=== PATIENT | female | born 1950 | race Caucasian/White ===

== ENCOUNTER 2016-05-21 13:58 | Emergency (ER) | payer MEDICARE, BC, OTHER ==
[~2016-05-21] VITALS: Ht 307.3 cm; Wt 91.1 kg
[~2016-05-21 13:58] MED LIST: ALPR0.25 PO; ASCO500T2 PO; ASPI81TA2 PO; CALC-316 PO; CHOL400C2 PO; CIPR250T30 PO; CLOP75TA27 PO; CRESTOR5 MG PO; DULO20CA PO; DULO30CA2 PO; ESTR42.53 VG; FISH12002 PO; LEVO112T4 PO; LEVO25TA4 PO; LOSA25TA4 PO; METF500T9 PO; METO25TA4 PO; MOME17SP NS; NITR100C63 PO; NORT25CA PO; OMEG300C PO; PANT40TA3 PO; SITA25TA PO; SOLI5TAB PO
[2016-05-21] MEDS ORDERED: ONDANSETRON PF 4 MG/2 ML VIAL. ONE (14:07)
[2016-05-21] MEDS ORDERED: IV NORMAL SALINE 1,000ML 1,000 ML IV ONE (14:30)
--- NOTE | 2016-05-21 14:38 | EKG ---
[address] [address] Test Date: 2016-05-21 Test Time: 14:33:15 Pat Name: ALICIA LEBRON Department: Room: Gender: F Tool Room Supervisor: NIYAH : 1950 Requested By: TYRON MORENO Order Number: [id number] Reading MD: Measurements Intervals [place] Rate: 63 P: 58 VT: 220 QRS: -4 QRSD: 92 T: 48 QT: 438 QTc: 452 Interpretive Statements SINUS RHYTHM PROLONGED VT INTERVAL LEFTWARD AXIS ABNORMAL ECG RI6.01 Unconfirmed report No previous ECG available for comparison
[2016-05-21] MEDS ORDERED: ONDANSETRON PF 4 MG/2 ML VIAL. IV ONE (14:45)
[2016-05-21] MEDS ORDERED: METOCLOPRAMIDE HCL 10 MG/2 ML VIAL. IV ONE (14:45)
[2016-05-21 14:46] LABS: BASO # 0.1 x10^3/uL (0.0-0.2); BASO % 1 % (0-3); EOS # 0.1 x10^3/uL (0.0-0.7); EOS % 1 % (0-3); HEMATOCRIT 41.6 % (36.0-47.0); LYMPH # 3.4 x10^3/uL (1.0-4.8); LYMPH % 22 % (24-48); MEAN CORPUSCULAR HEMOGLOBIN 29 pg (25-35); MEAN CORPUSCULAR HGB CONC 34 g/dL (31-37); MEAN CORPUSCULAR VOLUME 85 fL (79-100); MONO # 0.9 x10^3/uL (0.0-1.1); MONO % 6 % (0-9); NEUT % 71 % (31-73); PLATELET COUNT 281 x10^3/uL (140-400); RED BLOOD COUNT 4.91 x10^6/uL (3.50-5.40); RED CELL DISTRIBUTION WIDTH 13.6 % (11.5-14.5); WHITE BLOOD COUNT 15.6 x10^3/uL (4.0-11.0)
[2016-05-21 14:50] LABS: POTASSIUM ISTAT 4.1 mmol/L (3.5-5.0)
--- NOTE | 2016-05-21 15:03 | RAD ---
CT of the head without contrast, 05/21/2016: History: Fall, headache There is a moderate sized abnormal extra-axial fluid collection over the left cerebral hemisphere. It is predominantly of high density with lesser low density components. The indicates a subdural location. It measures approximately 14 mm in greatest width. There is effacement of the underlying cortical sulci and the left lateral ventricle with a moderate yjka-lx-[id number] shift of the midline structures. No intra-axial hemorrhage is seen. The bony calvarium appears intact. IMPRESSION: Moderate sized left subdural hematoma with predominantly acute components, with a moderate associated left to right shift of the midline structures. Note: The findings were called to personnel in the [facility] ER at 3:00 PM on 05/21/2016. PQRS Compliance Statement: One or more of the following individualized dose reduction techniques were utilized for this examination: 1. Automated exposure control 2. Adjustment of the mA and/or kV according to patient size 3. Use of iterative reconstruction technique
--- NOTE | 2016-05-21 15:15 | ED.ADGEN ---
Past History Past Medical History: CAD, Constipation, Diabetes, Gallstones, Kidney Stones Past Surgical History: Cholecystectomy, Lumbar Laminectomy, Other Alcohol Use: None Drug Use: None Adult General HPI HPI Patient is a 65-year-old female with a history of diabetes, hypertension, coronary artery disease status post stent 3 years ago and currently on Plavix presents complaining of sudden onset "worse headache of her life" 3 hours prior to arrival. Then, 2 hours later she began to experience uncontrolled nausea and vomiting. She has no other focal complaints. She does note that her mother had a subarachnoid hemorrhage in her 60s. Denies any trauma or recent injury. Denies any recent illness. Has had no prehospital intervention. Review of Systems Review of Systems Constitutional: Denies fever or chills [] Eyes: Denies change in visual acuity, redness, or eye pain [] HENT: Denies nasal congestion or sore throat [] Respiratory: Denies cough or shortness of breath [] Cardiovascular: No additional information not addressed in HPI [] GI: Denies abdominal pain, nausea, vomiting, bloody stools or diarrhea [] : Denies dysuria or hematuria [] Musculoskeletal: Denies back pain or joint pain [] Integument: Denies rash or skin lesions [] Neurologic: Denies headache, focal weakness or sensory changes [] Endocrine: Denies polyuria or polydipsia [] Current Medications Current Medications Current Medications Medications (Trade) Dose Ordered Sig/Juan David Start Time Stop Time Status Last Admin Dose Admin Metoclopramide HCl (Reglan) 10 mg 1X ONCE 05/21/16 14:45 05/21/16 14:46 DC 05/21/16 14:45 10 MG Ondansetron HCl (Zofran) 4 mg STK-MED ONCE 05/21/16 14:07 05/21/16 14:08 DC Ondansetron HCl 8 mg 8 mg 1X ONCE 05/21/16 14:45 05/21/16 14:46 DC 05/21/16 14:38 8 MG Sodium Chloride (Iv Sodium Chloride 0.9% 1,000ml) 1,000 ml @ 1,000 mls/hr 1X ONCE 05/21/16 14:30 05/21/16 15:29 DC 05/21/16 14:30 1,000 MLS/HR Allergies Allergies Allergies Coded Allergies Type Severity Reaction Last Updated Verified erythromycin base Allergy Intermediate 03/17/16 Yes Physical Exam Physical Exam Constitutional: Well developed, well nourished, moderate acute distress, diaphoretic, uncomfortable. [] HENT: Normocephalic, atraumatic, bilateral external ears normal, oropharynx moist, no oral exudates, nose normal. [] Eyes: PERRLA, EOMI, conjunctiva normal, no discharge. [] Neck: Normal range of motion, no tenderness, supple, no stridor. [] Cardiovascular:Heart rate regular rhythm, no murmur [] Lungs & Thorax: Bilateral breath sounds clear to auscultation [] Abdomen: Bowel sounds normal, soft, no tenderness, no masses, no pulsatile masses. [] Skin: Warm, dry, no erythema, no rash. [] Back: No tenderness, no CVA tenderness. [] Extremities: No tenderness, no cyanosis, no clubbing, ROM intact, no edema. [] Neurologic: Alert and oriented X 3, normal motor function, normal sensory function, no focal deficits noted. [] Psychologic: Affect normal, judgement normal, mood normal. [] Current Patient Data Vital Signs Vital Signs Date Time Temp Pulse Resp B/P Pulse Ox O2 Delivery O2 Flow Rate FiO2 05/21/16 14:05 97.5 15 97 Room Air Lab Results Laboratory Tests Test 05/21/16 14:16 05/21/16 14:25 05/21/16 14:28 05/21/16 14:29 Glucose (Fingerstick) 158mg/dL (70-99) H White Blood Count 15.6x10^3/uL (4.0-11.0) H Red Blood Count 4.91x10^6/uL (3.50-5.40) Hemoglobin 14.0g/dL (12.0-15.5) Hematocrit 41.6% (36.0-47.0) Mean Corpuscular Volume 85fL (79-100) Mean Corpuscular Hemoglobin 29pg (25-35) Mean Corpuscular Hemoglobin Concent 34g/dL (31-37) Red Cell Distribution Width 13.6% (11.5-14.5) Platelet Count 281x10^3/uL (140-400) Neutrophils (%) (Auto) 71% (31-73) Lymphocytes (%) (Auto) 22% (24-48) L Monocytes (%) (Auto) 6% (0-9) Eosinophils (%) (Auto) 1% (0-3) Basophils (%) (Auto) 1% (0-3) Neutrophils # (Auto) 11.0x10^3uL (1.8-7.7) H Lymphocytes # (Auto) 3.4x10^3/uL (1.0-4.8) Monocytes # (Auto) 0.9x10^3/uL (0.0-1.1) Eosinophils # (Auto) 0.1x10^3/uL (0.0-0.7) Basophils # (Auto) 0.1x10^3/uL (0.0-0.2) Segmented Neutrophils % 63% (35-66) Lymphocytes % 33% (24-48) Monocytes % 2% (0-10) Basophils % 2% (0-3) Platelet Estimate Adequate (ADEQUATE) Platelet Clumps, EDTA Present Large Platelets Occ Polychromasia Slight Ovalocytes Occ Prothrombin Time 9.9SEC (9.4-11.4) Prothrombin Time INR 1.0 (0.9-1.1) PTT 23SEC (23-33) Lactic Acid Level 2.1mmol/L (0.4-2.0) H POC Hemoglobin 15.0gm/dL POC Hematocrit 44% POC Sodium 140mmol/L (135-145) POC Potassium 4.1mmol/L (3.5-5.0) POC Chloride 99mmol/L (98-110) POC Total CO2 31mmol/L (23-32) Anion Gap 15mmol/L (6-14) H POC Blood Urea Nitrogen 14mg/dL (8-26) POC Creatinine 1.0mg/dL (0.5-1.4) Glucose Level 156mg/dL (60-99) H POC Ionized Calcium (Joe) 1.19mmol/L (1.13-1.32) POC Troponin I 0.00ng/ml (<0.08) EKG EKG EKG interpreted by me, normal sinus rhythm, 63 beats for minute, leftward axis, no ST segment elevation. [] Radiology/Procedures Radiology/Procedures CT of the head without contrast, 05/21/2016: History: Fall, headache There is a moderate sized abnormal extra-axial fluid collection over the left cerebral hemisphere. It is predominantly of high density with lesser low density components. The indicates a subdural location. It measures approximately 14 mm in greatest width. There is effacement of the underlying cortical sulci and the left lateral ventricle with a moderate rviu-kh-nokol shift of the midline structures. No intra-axial hemorrhage is seen. The bony calvarium appears intact. IMPRESSION: Moderate sized left subdural hematoma with predominantly acute components, with a moderate associated left to right shift of the midline structures. Note: The findings were called to personnel in the [facility] ER at 3:00 PM on 05/21/2016. PQRS Compliance Statement: One or more of the following individualized dose reduction techniques were utilized for this examination: 1. Automated exposure control 2. Adjustment of the mA and/or kV according to patient size 3. Use of iterative reconstruction technique[] Course & Med Decision Making Course & Med Decision Making Pertinent Labs and Imaging studies reviewed. (See chart for details) 1500 - spoke with Dayanara from neurosurgery 1515 - return call from Dayanara - transfer to [facility] for anticipatied craniotomy this afternoon. Patient and family updated. 1530 - Accepted by Dr. Hernandez [] Final Impression Final Impression Subdural Hematoma[] Problems: Dragon Disclaimer Dragon Disclaimer This electronic medical record was generated, in whole or in part, using a voice recognition dictation system. Critical Care Time Critical care time was 60 minutes exclusive of procedures. TYRON MORENO MD May 21, 2016 15:15
[2016-05-21 15:16] LABS: % BASOS 2 % (0-3); % LYMPHS 33 % (24-48); % MONOS 2 % (0-10); % SEGS 63 % (35-66)
[2016-05-21 15:19] LABS: OVALOCYTES OCC; PLATELET CLUMP PRESENT; PLT ESTIMATE ADEQUATE (ADEQUATE); POLYCHROMASIA SLIGHT
[2016-05-21 15:30] VITALS: BP 163/89
== END 2016-05-21 15:43 | disposition short-term general hospital (02) ==
LOC: ER 13:58
DX: I62.00 Nontraumatic subdural hemorrhage, unspecified (principal); E11.9 Type 2 diabetes mellitus without complications; I25.10 Atherosclerotic heart disease of native coronary artery without angina pectoris; Z87.442 Personal history of urinary calculi; Z88.1 Allergy status to other antibiotic agents
CPT/HCPCS: 36415; 70450; 80047; 82947; 83605; 84484; 85007; 85027; 85610; 85730; 93005; 96361; 96374; 96375; 99291; J2405; J2765; J7030

== ENCOUNTER → 2016-05-31 | Outpatient (CLI) | payer MEDICARE, BC, OTHER ==
[2016-05-21 15:30] VITALS: BP 163/89
--- NOTE | 2016-05-31 15:05 | RAD ---
Indication post craniotomy. Noncontrast images of the head were obtained and are compared to the most recent examination available 10 days ago. There has been interval craniotomy. Subdural fluid collection on the left persists. Most of the subdural fluid has a chronic appearance however there is a rim of increased density suggesting possible rebleeding. The subdural fluid collection measures maximally approximately 11 mm which represents no significant change compared to the previous study. The hyperdense collection, measures approximately 5 mm. There is considerable left to right shift measuring 11 mm. This represents an increase relative to the previous examination when the corresponding measurement was approximately 5. No acute parenchymal finding is seen. A preliminary report was faxed to Laurie in Dr. Mcgraw's office. IMPRESSION: Persistent left subdural fluid collection which, overall, is similar when compared to the preoperative study. There is a rim of increased density associated with the subdural fluid collection and some rebleeding into the subdural space is not excluded. There is mzrw-az-tmfyw shift, greater than on the previous exam PQRS Compliance Statement: One or more of the following individualized dose reduction techniques were utilized for this examination: 1. Automated exposure control 2. Adjustment of the mA and/or kV according to patient size 3. Use of iterative reconstruction technique
== END | disposition home or self-care (01) ==
LOC: CT 13:29
PROVIDERS: ATTEND Neurological Surgery
DX: I62.00 Nontraumatic subdural hemorrhage, unspecified (principal)
CPT/HCPCS: 70450

== ENCOUNTER → 2016-09-09 | Outpatient (CLI) | payer MEDICARE, BC, OTHER ==
[~2016-09-09] MED LIST changes: +ASPI-630 PO; -ASPI81TA2 PO; -CLOP75TA27 PO; +CLOP75TA57 PO; -DULO20CA PO; +DULO20CA50 PO; +IOHEXOL 240 MG/ML 50ML VIAL. ONE; +IOHEXOL 300 MG/ML 75 ML VIAL. IV ONE; -SOLI5TAB PO; +SOLI5TAB2 PO
--- NOTE | 2016-09-09 15:50 | RAD ---
CT of the abdomen and pelvis with contrast, 09/09/2016: History: Periumbilical pain Multidetector CT imaging was performed following oral and IV administration of contrast. The gallbladder is surgically absent. There is no evidence of a hepatic mass or bile duct dilatation. No pancreatic abnormality is detected. The spleen is of normal size. There is mild bilateral renal cortical scarring. The kidneys show no evidence of obstruction. There are 2 low density lesions in the right kidney compatible with cysts. The largest of these lies in the lower pole and measures 12 mm. There is a slightly smaller cyst in the upper pole of the left kidney. There is minimal aortoiliac calcific plaquing without evidence of aneurysm. No abdominal or pelvic adenopathy is seen. The uterus is surgically absent. The bowel loops are not dilated. There is a moderate amount of stool in the colon. The appendix is visualized and shows no abnormality. No free fluid or free air is evident in the abdomen or pelvis. There is a small umbilical hernia containing only fat. There is been a previous lower lumbar spinal fusion and instrumentation at L5-S1. There is a moderate unchanged spondylolisthesis at L5-S1. IMPRESSION: 1. No acute abdominal or pelvic abnormality is detected. 2. Small bilateral renal cysts. 3. Tiny umbilical hernia containing only fat. PQRS Compliance Statement: One or more of the following individualized dose reduction techniques were utilized for this examination: 1. Automated exposure control 2. Adjustment of the mA and/or kV according to patient size 3. Use of iterative reconstruction technique
== END | disposition home or self-care (01) ==
LOC: CT 08:20
PROVIDERS: ATTEND Internal Medicine Gastroenterology
DX: N28.1 Cyst of kidney, acquired (principal); K42.9 Umbilical hernia without obstruction or gangrene; M43.17 Spondylolisthesis, lumbosacral region; Z98.1 Arthrodesis status
CPT/HCPCS: 74177; Q9966; Q9967

== ENCOUNTER 2016-09-10 10:11 | Emergency (ER) | payer MEDICARE, BC, OTHER ==
[~2016-09-10] VITALS: Ht 307.3 cm; Wt 91.1 kg
[~2016-09-10 10:11] MED LIST changes: -IOHEXOL 240 MG/ML 50ML VIAL. ONE; -IOHEXOL 300 MG/ML 75 ML VIAL. IV ONE
[2016-09-10 10:15] VITALS: BP 186/110
[2016-09-10] MEDS ORDERED: SUCCINYLCHOLINE 200 MG/10 ML VIAL. ONE (12:00)
[2016-09-10] MEDS ORDERED: ETOMIDATE 40 MG/20 ML VIAL. IV ONE (12:00)
--- NOTE | 2016-09-10 12:32 | PHYS DOC ---
Past History Past Medical History: Diabetes, Heart Disease, Hypertension, Hyperthyroid Past Surgical History: Other Alcohol Use: None Drug Use: None Adult General Chief Complaint Chief Complaint: NEURO SYMPTOMS/DEFICITS HPI HPI Patient is a 66 year old female who presents with depressed mental status. The patient is brought by EMS, reportedly she called her just prior to arrival stating she thought she had "another brain bleed." EMS arrived to find patient mumbling & nonsensical, shortly thereafter became unresponsive with dilated right pupil. They were concerned about airway as they could not place LMA. She has previous history of subdural hemorrhage requiring craniotomy by Dr. Mcgraw. Patient unable to provide history due to clinical condition. Review of Systems Review of Systems unable to obtain due to clinical condition. Allergies Allergies Allergies Coded Allergies Type Severity Reaction Last Updated Verified erythromycin base Allergy Intermediate 03/17/16 Yes Physical Exam Physical Exam Constitutional: Well developed, well nourished, unresponsive. HENT: Normocephalic, atraumatic, bilateral external ears normal, nose normal. Eyes: dilated right pupil, left pupil 4 mm minimally responsive. Neck: supple, no stridor. Cardiovascular: RRR Lungs & Thorax: sonorous respirations, breath sounds present bilaterally. Abdomen: nondistended. Skin: Warm, dry, no erythema, no rash. Extremities: No deformity Neurologic: GCS 3, dilated right pupil, no spontaneous movement or speech. Psychologic: unable to assess due to clinical condition. Current Patient Data Vital Signs Vital Signs Date Time Temp Pulse Resp B/P (MAP) Pulse Ox O2 Delivery O2 Flow Rate FiO2 09/10/16 10:15 97.8 89 18 99 Bag Valve Mask EKG EKG [] Radiology/Procedures Radiology/Procedures [] Course & Med Decision Making Course & Med Decision Making Pertinent Labs and Imaging studies reviewed. (See chart for details) The patient presents with acute respiratory failure and altered mental status. She arrived very quickly after the EMS call. EMS crew was requested to stay in the department. She was placed on the monitor and given oxygen via nonrebreather while preparation for intubation was in progress. Oxygen saturation was stable throughout this time. The patient was intubated, bagging was continued rather than placing on the ventilator as we had planned to quickly perform CT scan prior to transfer. However there had been a recent power outage in the CT scanner had to be repeated. We were not able to quickly perform CT. I consulted with Dr. Piper in the emergency department at [facility]. Regardless of CT findings, I anticipate that her condition will be too critical to be managed at this facility. . [facility] agreed to accept for transfer and they will perform CT and chest x-ray to confirm tube placement upon arrival there. She is being bagged without difficulty and EMS is on scene able to transfer immediately. After she departed I did receive a call back from Dr. Wu of neurosurgery at [facility]. I informed him of the patient's condition and transfer to [facility]. He is aware and will await further information from the physician there. I did update the patient's regarding her critical condition and plans for transfer. The patient is being transferred emergently, in critical condition. [] Dragon Disclaimer Dragon Disclaimer This chart was dictated in whole or in part using Voice Recognition software in a busy, high-work load, and often noisy Emergency Department environment. It may contain unintended and wholly unrecognized errors or omissions. Departure Departure: Impression: Primary Impression: Acute respiratory failure Additional Impression: Altered mental status Disposition: 03 XFER SNF Condition: CRITICAL Problem Qualifiers BINU DOLAN MD Sep 10, 2016 12:32
== END 2016-09-10 10:45 ==
LOC: ER 10:11
DX: J96.00 Acute respiratory failure, unspecified whether with hypoxia or hypercapnia (principal); R41.82 Altered mental status, unspecified; E11.9 Type 2 diabetes mellitus without complications; I11.9 Hypertensive heart disease without heart failure; Z88.1 Allergy status to other antibiotic agents
CPT/HCPCS: 31500; 99285; J0330